=== PATIENT | male | born 1960 | race American Indian/Alaskan Native ===

== ENCOUNTER 2018-07-22 23:34 | Inpatient (IN) | payer MEDICAID, OTHER ==
--- NOTE | 2018-07-22 23:56 | Emergency Department Report ---
ED Shortness of Breath HPI - General Chief Complaint: Psych Stated Complaint: LYNNETTE Time Seen by Provider: 07/22/18 23:39 Source: patient, EMS Mode of arrival: Stretcher Limitations: No Limitations - History of Present Illness Initial Comments: 58-year-old male with history of hypertension, mitral valve replacement, currently taking Coumadin and lisinopril, presents to the ED by EMS for shortness of breath. Patient states symptoms started tonight. Patient states symptoms began just as he was about to go to bed. Denies cough, fever, chest pain, lower extremity swelling. EMS reports patient was in tripod position upon arrival, with O2 sats in the 80s, and hypertensive with SBP in the 240s. Patient was given Solu-Medrol, SL nitro, Lasix and placed on CPAP. Patient states he recently stopped smoking 2 weeks ago. Denies drug use. PCP: none Complaint: shortness of breath -: This evening Severity: severe Consistency: constant Improves With: nothing Worsens With: nothing Treatments Prior to Arrival: NIPPV, nitroglycerin - Related Data Home Oxygen Therapy: No Allergies Allergy/AdvReac Type Severity Reaction Status Date / Time No Known Allergies Allergy Verified 07/22/18 23:44 ED Review of Systems ROS: Stated complaint: LYNNETTE Other details as noted in HPI Comment: All other systems reviewed and negative Constitutional: denies: chills, fever Respiratory: shortness of breath. denies: cough Cardiovascular: denies: chest pain Musculoskeletal: other (denies leg swelling or edema) ED Past Medical Hx - Past Medical History Previous Medical History?: Yes Hx Hypertension: Yes Hx Congestive Heart Failure: Yes Additional medical history: Mitral Valve Replacement - Surgical History Past Surgical History?: Yes Additional Surgical History: "head" - Social History Smoking Status: Never Smoker Substance Use Type: Prescribed ED Physical Exam - General Limitations: No Limitations General appearance: alert, in no apparent distress - Head Head exam: Present: atraumatic, normocephalic - Eye Eye exam: Present: normal appearance - ENT ENT exam: Present: mucous membranes moist - Neck Neck exam: Present: normal inspection - Respiratory Respiratory exam: Present: respiratory distress, rales - Cardiovascular Cardiovascular Exam: Present: regular rate, normal rhythm - GI/Abdominal GI/Abdominal exam: Present: soft. Absent: distended, tenderness - Extremities Exam Extremities exam: Absent: pedal edema, calf tenderness - Neurological Exam Neurological exam: Present: alert, oriented X3 - Psychiatric Psychiatric exam: Present: normal affect, normal mood - Skin Skin exam: Present: warm, dry, intact, normal color ED Course Vital Signs 07/22/18 07/22/18 07/22/18 23:35 23:39 23:40 Temperature 97.1 F L Pulse Rate 70 71 Pulse Rate [ Bilateral Throughout] Respiratory 23 25 H Rate Respiratory Rate [Bilateral Throughout] Blood Pressure 172/118 124/64 172/116 O2 Sat by Pulse 100 100 Oximetry 07/23/18 07/23/18 07/23/18 00:00 00:23 01:00 Temperature Pulse Rate 71 69 84 Pulse Rate [ Bilateral Throughout] Respiratory 22 Rate Respiratory Rate [Bilateral Throughout] Blood Pressure 189/126 163/114 153/106 O2 Sat by Pulse 100 100 Oximetry 07/23/18 07/23/18 01:23 02:00 Temperature Pulse Rate 91 H Pulse Rate [ 68 Bilateral Throughout] Respiratory Rate Respiratory 20 Rate [Bilateral Throughout] Blood Pressure 149/101 O2 Sat by Pulse 96 Oximetry ED Medical Decision Making - Lab Data Result diagrams: 07/23/18 00:21 07/23/18 00:21 - EKG Data -: EKG Interpreted by Pa EKG shows normal: sinus rhythm, axis, ST-T waves Rate: normal - EKG Data Interpretation: LVH, other (RBBB) - Radiology Data Radiology results: report reviewed, image reviewed - Medical Decision Making 58-year-old male presents to ED wrist distress. Patient given multiple medications by EMS prior to arrival, including sublingual nitroglycerin, Lasix, Solu-Medrol. Patient denies known history of CHF or COPD. However patient did have a history of smoking, states that he recently stopped 2 weeks ago. Patient remained hypertensive upon ED arrival despite administration of nitroglycerin, saw hydralazine 10 mg IV was given. Patient was given albuterol nebulizer, reported relief following nebulizer treatment. EKG showed evidence of right bundle-branch block, no ST changes, normal troponin. His EKG and difficulty breathing CTA was ordered. CTA did not show evidence of PE or pulmonary edema. CT shows evidence of emphysematous lungs. This is possibly a COPD exacerbation vs CHF. Patient does have elevated BNP. Will admit to hospitalist, Dr Gutiérrez, for further management. - Differential Diagnosis CHF, COPD, PE, pneumonia Critical Care Time: Yes Critical care time in (mins) excluding proc time.: 30 Critical care attestation.: If time is entered above; I have spent that time in minutes in the direct care of this critically ill patient, excluding procedure time. Critical Care Time: 30 minutes ED Disposition Clinical Impression: Hypertensive emergency, Acute respiratory distress, COPD (chronic obstructive pulmonary disease) Disposition: 09 OP ADMIT IP TO THIS HOSP Is pt being admited?: Yes Condition: Stable Instructions: Chronic Obstructive Pulmonary Disease (ED), Hypertension (ED) Referrals: IVORY HERNANDEZ MD [Primary Care Provider] - 3-5 Days Time of Disposition: 03:16
--- NOTE | 2018-07-23 00:04 | XRay Report ---
PROCEDURE: Chest. TECHNIQUE: Portable AP view. HISTORY: Shortness of breath. COMPARISONS: None. FINDINGS: The heart and mediastinum appear normal. There is mild tortuosity and calcification in the thoracic a silver. There is a prosthetic aortic valve. The lungs are clear and well expanded. There are no pleural effusions. The soft tissues are unremarkable. Median sternotomy wires are present. IMPRESSION: No evidence of acute cardiopulmonary disease. This document is electronically signed by Hernán Stephens MD., July 23 2018 12:01:43 AM ET
[2018-07-23] MEDS ORDERED: ATROVENT IH ONE (00:15)
[2018-07-23] MEDS ORDERED: PROVENTIL IH ONE (00:15)
[2018-07-23] MEDS ORDERED: APRESOLINE IV ONE (00:17)
[2018-07-23 00:42] LABS: Basophils # (Auto) 0.1 K/mm3 (0.0-0.1); Basophils % (Auto) 0.6 % (0.0-1.8); Eosinophils # (Auto) 0.1 K/mm3 (0.0-0.4); Eosinophils % (Auto) 0.9 % (0.0-4.3); Hematocrit 38.8 % (35.5-45.6); Hemoglobin 12.4 gm/dl (11.8-15.2); Lymphocytes # (Auto) 1.1 K/mm3 (1.2-5.4); Lymphocytes % (Auto) 12.9 % (13.4-35.0); Mean Corpuscular HGB Conc 32 % (32-34); Mean Corpuscular Volume 79 fl (84-94); Monocytes # (Auto) 0.3 K/mm3 (0.0-0.8); Monocytes % (Auto) 3.4 % (0.0-7.3); Red Blood Count 4.92 M/mm3 (3.65-5.03); Red Cell Distribution Width 15.9 % (13.2-15.2)
[2018-07-23 00:54] LABS: INR 0.89 (0.87-1.13); Partial Thromboplastin Time 23.6 Sec. (24.2-36.6); Platelet Count 157 K/mm3 (140-440)
[2018-07-23 01:09] LABS: Amphetamine Screen,Urine PRESUMPTIVE NEGATIVE; Benzodiazepines Screen,Urine PRESUMPTIVE NEGATIVE; Bilirubin,Urine NEG (Negative); Blood,Urine NEG (Negative); Cocaine Screen,Urine PRESUMPTIVE NEGATIVE; Color,Urine Colorless (Yellow); Methadone Screen,Urine PRESUMPTIVE NEGATIVE; Opiate Screen,Urine PRESUMPTIVE NEGATIVE; Protein,Urine <15 mg/dL mg/dL (Negative); Urobilinogen,Urine < 2.0 mg/dL (<2.0)
[2018-07-23 01:27] LABS: Cannabinoid Screen,Urine PRESUMPTIVE POSITIVE
[2018-07-23 02:10] LABS: BUN/Creatinine Ratio 7; Blood Urea Nitrogen 8 mg/dL (9-20); Calcium 9.3 mg/dL (8.4-10.2); Hemolysis Index 20
--- NOTE | 2018-07-23 03:11 | Cat Scan Report ---
PROCEDURE: CT ANGIO CHEST TECHNIQUE: A CT angiogram was obtained following the intravenous injection of IV contrast. Rotationa l, sagittal, and coronal MIP reconstructions were reviewed. HISTORY: sob COMPARISONS: Chest x-ray 07/22/2018 FINDINGS: There is no evidence of pulmonary embolus, vascular congestion, or aortic dissection. The heart size is normal. Pericardial fluid is not seen. The thoracic aorta is normal in caliber. Adenopathy is not seen. The lungs are hyperinflated with generalized emphysematous changes. There are no acute infiltra silviano or effusions. In the upper abdomen the adrenal glands appear normal. There are small cortical cys ts in the left kidney. The skeletal structures do not show any acute changes. Sternotomy sutures are noted. IMPRESSION: No evidence of pulmonary embolus, vascular congestion, or aortic dissection. Emphysema. No acute infiltrates or effusions.. This document is electronically signed by aFdi Gaston MD., July 23 2018 03:09:02 AM ET
[2018-07-23] MEDS ORDERED: TYLENOL PO PRN (04:09)
[2018-07-23] MEDS ORDERED: ZOFRAN IV PRN (04:10)
--- NOTE | 2018-07-23 06:08 | History and Physical Report ---
CHIEF COMPLAINT: Shortness of breath. HISTORY OF PRESENTING ILLNESS: The patient is a 58-year-old male who was having shortness of breath at home and denied history of chest pain and denied history of fever or chills. Also, the patient denied history of nausea and vomiting or swelling in the lower extremity and stated that his symptoms started just when he was about to go to bed. EMS was called and they found the patient in respiratory distress with low oxygen saturation in the 80s and with very high systolic blood pressure running about 240s. The patient was subsequently given Solu-Medrol IV, sublingual nitroglycerin and a dose of IV Lasix and was placed on CPAP and brought to the Emergency Room. PAST MEDICAL HISTORY: Pertinent for hypertension, congestive heart failure, mitral valve disease. PAST SURGICAL HISTORY: Pertinent for mitral valve replacement surgery and surgery involving the head. FAMILY HISTORY: Family history is noncontributory. SOCIAL HISTORY: The patient smokes cigarettes and states he stopped smoking about 2 weeks ago. Does not use illicit drugs and does not drink alcohol. MEDICATIONS: The patient's home medications are not known at this time. ALLERGIES: There are no known drug allergies. REVIEW OF SYSTEMS: CONSTITUTIONAL: There is no fever, no chills, no diaphoresis. HEENT: There is no headache or sore throat. CARDIOVASCULAR SYSTEM: There is no chest pain or orthopnea. RESPIRATORY SYSTEM: Shortness of breath is present. Mild cough is present. GASTROINTESTINAL SYSTEM: There is no nausea, no vomiting, no abdominal pain, diarrhea or constipation. NEUROLOGICAL SYSTEM: There is no numbness, no dizziness, no altered mental status. MUSCULOSKELETAL SYSTEM: There is no joint pain or swelling. DERMATOLOGICAL SYSTEM: There is no skin rash or itching. GENITOURINARY SYSTEM: There is no dysuria, hematuria, or flank pain. Rest of system review is normal. PHYSICAL EXAMINATION: GENERAL: At the time of exam, the patient was found to be alert, oriented x 3 and not in acute distress. VITAL SIGNS: At the initial time of presentation show temperature of 97.1 degrees Fahrenheit, pulse of 70, respiration 24, blood pressure of 172/118 that came down to 124/64, O2 sat of 100% on oxygen. HEENT: Showed pupils to be equal, round, reactive to light and accommodating. Extraocular muscles are intact. NECK: Neck is supple with no JVD or carotid bruit. CARDIOVASCULAR SYSTEM: Showed normal first and second heart sounds with no gallops or murmur. RESPIRATORY SYSTEM: Show reduced air entry on both sides of the lung with expiratory wheezing. GASTROINTESTINAL SYSTEM: Show abdomen to be full, soft, nontender with no organomegaly or rigidity. NEUROLOGICAL: Neuro exam shows no focal deficit. MUSCULOSKELETAL SYSTEM: Show no joint swelling or tenderness. DERMATOLOGICAL SYSTEM: Show no skin rash. GENITOURINARY SYSTEM: Showing no costovertebral angle tenderness. PERTINENT LABORATORY AND IMAGING STUDIES: The patient had chest x-ray done which shows no evidence of acute cardiopulmonary lesion. Also, the patient had CT angiogram of the chest done that shows no evidence of pulmonary embolism, vascular congestion or aortic dissection. There is finding of emphysema and no acute infiltrate or effusion was found. Lab result; the patient has CBC done with normal white count, normal hemoglobin and normal hematocrit with CBC differential showing elevated segmented neutrophil count of 82.2%. The patient's coagulation study was unremarkable. The patient's blood gas shows normal pH, normal pCO2 and low pO2 of 68 with low O2 sat of 93% and this was done on room air. The patient's chemistry was unremarkable. Troponin level came back unremarkable. Brain natriuretic peptide level is 898.7 which is within normal range. The patient's urinalysis was unremarkable and the patient's toxicology screen is positive for marijuana. DIAGNOSES: 1. Emphysema. 2. Hypertensive crisis. 3. Marijuana abuse. PLAN OF CARE: 1. The patient will be admitted to telemetry. 2. The patient will have cardiac enzymes involving troponin, total CK, and CK-MB check q. 6 hours x 2 more levels. 3. The patient will be on 2 gram sodium diet. 4. The patient will be on IV Solu-Medrol 60 mg q. 8 hours. 5. The patient will be on IV Levaquin 750 mg daily. 6. The patient will be on duo nebulizer q.i.d. 7. The patient will be on p.r.n. medications like Tylenol 650 mg by mouth every 4 hours as needed for fever and headache. 8. The patient will be on IV Zofran 4 mg every 8 hours as needed for nausea and vomiting. 9. The patient will be on oxygen treatment by protocol. 10. The patient will be on IV hydralazine 10 mg every 4 hours for systolic blood pressure of 150/90 or more. JOB# [id number] OCN/NTS
[2018-07-23 07:32] LABS: Creatine Kinase MB 5.9 ng/mL (0.0-4.0)
--- NOTE | 2018-07-23 09:20 | Progress Note ---
Assessment and Plan Assessment and plan: Patient is a 58 yo man with a history of hypertension, CHF, MVR and tobacco dependency who presented with sob. * CTA chest IMPRESSION: No evidence of pulmonary embolus, vascular congestion, or aortic dissection. Emphysema. No acute infiltrates or effusions.. Malignant Hypertension AE COPD suspected Marijuana use History Interval history: Patient was seen and examined. Follow-up on current diagnosis hypertension. Overnight uneventful. Patient denies any chest pain, shortness breath, nausea/vomiting or severe headaches. Imaging, nursing note, chart, labs and old chart reviewed. Discussed with patient. Hospitalist Physical - Physical exam Narrative exam: Gen: WDWN, NAD, Awake, Alert, Orientated HEENT: NCAT, EOMI, PERRL, OP Clear Neck: supple, no adenopathy, no thyromegaly, no JVD CVS/Heart: RRR, normal S1S2, pulses present bilaterally Chest/Lungs: CTA B, Symmetrical chest expansion, good air entry bilaterally GI/Abdomen: soft, NTND, good bowel sounds, no guarding or rebound /Bladder: no suprapubic tenderness, no CVA or paraspinal tenderness Extermity/Skin: no c/c/e, no obvious rash MSK: FROM x 4 Neuro: CN 2-12 grossly intact, no new focal deficits Psych: calm - Constitutional Vitals: Temp Pulse Resp BP Pulse Ox 97.9 F 71 18 153/95 98 07/23/18 07:44 07/23/18 07:44 07/23/18 07:44 07/23/18 07:44 07/23/18 07:44 Results - Labs CBC & Chem 7: 07/23/18 00:21 07/23/18 00:21 Labs: Laboratory Last Values WBC 8.2 K/mm3 (4.5-11.0) 07/23/18 00:21 RBC 4.92 M/mm3 (3.65-5.03) 07/23/18 00:21 Hgb 12.4 gm/dl (11.8-15.2) 07/23/18 00:21 Hct 38.8 % (35.5-45.6) 07/23/18 00:21 MCV 79 fl (84-94) L 07/23/18 00:21 MCH 25 pg (28-32) L 07/23/18 00:21 MCHC 32 % (32-34) 07/23/18 00:21 RDW 15.9 % (13.2-15.2) H 07/23/18 00:21 Plt Count 157 K/mm3 (140-440) 07/23/18 00:21 Lymph % (Auto) 12.9 % (13.4-35.0) L 07/23/18 00:21 Rowan % (Auto) 3.4 % (0.0-7.3) 07/23/18 00:21 Eos % (Auto) 0.9 % (0.0-4.3) 07/23/18 00:21 Baso % (Auto) 0.6 % (0.0-1.8) 07/23/18 00:21 Lymph # 1.1 K/mm3 (1.2-5.4) L 07/23/18 00:21 Rowan # 0.3 K/mm3 (0.0-0.8) 07/23/18 00:21 Eos # 0.1 K/mm3 (0.0-0.4) 07/23/18 00:21 Baso # 0.1 K/mm3 (0.0-0.1) 07/23/18 00:21 Seg Neutrophils % 82.2 % (40.0-70.0) H 07/23/18 00:21 Seg Neutrophils # 6.7 K/mm3 (1.8-7.7) 07/23/18 00:21 PT 12.6 Sec. (12.2-14.9) 07/23/18 00:21 INR 0.89 (0.87-1.13) 07/23/18 00:21 APTT 23.6 Sec. (24.2-36.6) L 07/23/18 00:21 POC ABG pH 7.383 (7.35-7.45) 07/23/18 03:39 POC ABG pCO2 38.6 (35-45) 07/23/18 03:39 POC ABG pO2 68 (80-105) L 07/23/18 03:39 POC ABG HCO3 23.0 07/23/18 03:39 POC ABG Total CO2 24 07/23/18 03:39 POC ABG O2 Sat 93 07/23/18 03:39 POC ABG Base Excess -2 07/23/18 03:39 FiO2 21 % 07/23/18 03:39 Sodium 145 mmol/L (137-145) 07/23/18 00:21 Potassium 3.9 mmol/L (3.6-5.0) 07/23/18 00:21 Chloride 102.2 mmol/L (98-107) 07/23/18 00:21 Carbon Dioxide 29 mmol/L (22-30) 07/23/18 00:21 Anion Gap 18 mmol/L 07/23/18 00:21 BUN 8 mg/dL (9-20) L 07/23/18 00:21 Creatinine 1.2 mg/dL (0.8-1.5) 07/23/18 00:21 Estimated GFR > 60 ml/min 07/23/18 00:21 BUN/Creatinine Ratio 7 % 07/23/18 00:21 Glucose 111 mg/dL (75-100) H 07/23/18 00:21 Calcium 9.3 mg/dL (8.4-10.2) 07/23/18 00:21 Total Creatine Kinase 201 units/L (55-170) H 07/23/18 06:40 CK-MB (CK-2) 5.9 ng/mL (0.0-4.0) H 07/23/18 06:40 CK-MB (CK-2) Rel Index 2.9 (0-4) 07/23/18 06:40 Troponin T < 0.010 ng/mL (0.00-0.029) 07/23/18 06:40 NT-Pro-B Natriuret Pep 898.7 pg/mL (0-900) 07/23/18 00:21 Urine Color Colorless (Yellow) 07/23/18 00:12 Urine Turbidity Clear (Clear) 07/23/18 00:12 Urine pH 7.0 (5.0-7.0) 07/23/18 00:12 Ur Specific [place] 1.003 (1.003-1.030) 07/23/18 00:12 Urine Protein <15 mg/dl mg/dL (Negative) 07/23/18 00:12 Urine Glucose (UA) Neg mg/dL (Negative) 07/23/18 00:12 Urine Ketones Neg mg/dL (Negative) 07/23/18 00:12 Urine Blood Neg (Negative) 07/23/18 00:12 Urine Nitrite Neg (Negative) 07/23/18 00:12 Urine Bilirubin Neg (Negative) 07/23/18 00:12 Urine Urobilinogen < 2.0 mg/dL (<2.0) 07/23/18 00:12 Ur Leukocyte Esterase Neg (Negative) 07/23/18 00:12 Urine WBC (Auto) 1.0 /HPF (0.0-6.0) 07/23/18 00:12 Urine RBC (Auto) 1.0 /HPF (0.0-6.0) 07/23/18 00:12 U Epithel Cells (Auto) < 1.0 /HPF (0-13.0) 07/23/18 00:12 Urine Opiates Screen Presumptive negative 07/23/18 00:12 Urine Methadone Screen Presumptive negative 07/23/18 00:12 Ur Barbiturates Screen Presumptive negative 07/23/18 00:12 Ur Phencyclidine Scrn Presumptive negative 07/23/18 00:12 Ur Amphetamines Screen Presumptive negative 07/23/18 00:12 U Benzodiazepines Scrn Presumptive negative 07/23/18 00:12 Urine Cocaine Screen Presumptive negative 07/23/18 00:12 U Marijuana (THC) Screen Presumptive positive 07/23/18 00:12 Drugs of Abuse Note Disclamer 07/23/18 00:12
[2018-07-23] MEDS: SOLU-Medrol IV SCH ×3 (09:38→17:00)
[2018-07-23] MEDS: LEVAQUIN 750MG/150ML 750 MG/150 ML BAG IV SCH (09:39)
[2018-07-23] MEDS: DUONEB *Not for PRN Use IH SCH ×4 (09:57→20:58)
[2018-07-23] MEDS ORDERED: HEPARIN SUB-Q SCH (10:00)
[2018-07-23 13:57] LABS: Creatine Kinase MB 6.2 ng/mL (0.0-4.0)
--- NOTE | 2018-07-23 16:09 | Discharge Summary ---
Providers - Providers Date of Admission: 07/23/18 04:06 Date of discharge: 07/23/18 Attending physician: RUDY KO Primary care physician: SILL WORKER Hospitalization Condition: Stable Hospital course: Patient is a 58 yo man with a history of hypertension, CHF, mechanical MVR on Coumadin and tobacco dependency who presented with sob. * CTA chest IMPRESSION: No evidence of pulmonary embolus, vascular congestion, or aortic dissection. Emphysema. No acute infiltrates or effusions.. -Malignant Hypertension,out of bp medication, here for refills, lost insurance -Mechanical Mitral Valve, out of Coumadin 7.5mg po qday - and 5mg/day SS, needs bridging but he is threatening to leave -AE COPD suspected, referral Pulmonology -Marijuana use: counseling done Disposition: DC- TO HOME OR SELFCARE Time spent for discharge: 32 minutes Core Measure Documentation - Palliative Care Palliative Care/ Comfort Measures: Not Applicable - Core Measures Any of the following diagnoses?: none - VTE Discharge Requirements Deep Vein Thrombosis/Pulmonary Embolism Present on Admission: No Has pt received <5 days of overlap therapy or INR<2.0: No Anticoagulant overlap therapy prescribed at discharge: No Contraindication No Overlap Therapy order at DC: Not Indicated Exam - Physical Exam Narrative exam: Gen: WDWN, NAD, Awake, Alert, Orientated HEENT: NCAT, EOMI, PERRL, OP Clear Neck: supple, no adenopathy, no thyromegaly, no JVD CVS/Heart: RRR, normal S1S2, pulses present bilaterally Chest/Lungs: CTA B, Symmetrical chest expansion, good air entry bilaterally GI/Abdomen: soft, NTND, good bowel sounds, no guarding or rebound /Bladder: no suprapubic tenderness, no CVA or paraspinal tenderness Extermity/Skin: no c/c/e, no obvious rash MSK: FROM x 4 Neuro: CN 2-12 grossly intact, no new focal deficits Psych: calm - Constitutional Vitals: Temp Pulse Resp BP Pulse Ox 97.9 F 78 16 153/95 98 07/23/18 07:44 07/23/18 10:05 07/23/18 10:05 07/23/18 07:44 07/23/18 07:44 Plan Activity: other (no strenous activity unless cleared by PCP) Special Instructions: smoking cessation (declined nicotine patch) Follow up with: IVORY HERNANDEZ MD [Staff Physician] - 3-5 Days [facility] [Provider Group] - 7 Days
[2018-07-23] MEDS: BABY ASPIRIN PO SCH (16:56)
[2018-07-23] MEDS: COUMADIN PO SCH (16:56)
[2018-07-23] MEDS: ZESTRIL PO SCH (16:56)
[2018-07-23] MEDS: HEPARIN/ 0.45% NACL-25,000 UNIT/500 ML 25,000 UNIT/500 ML BAG IV SCH (17:00)
[2018-07-23 17:20] LABS: Hematocrit 36.5 % (35.5-45.6); Hemoglobin 11.7 gm/dl (11.8-15.2)
[2018-07-23 17:32] LABS: INR 0.95 (0.87-1.13)
[2018-07-23] MEDS: APRESOLINE IV PRN (21:27)
[2018-07-24] MEDS: APRESOLINE IV PRN (04:10)
[2018-07-24] MEDS: SOLU-Medrol IV SCH ×2 (06:00→17:59)
[2018-07-24] MEDS: DUONEB *Not for PRN Use IH SCH ×4 (08:07→20:19)
[2018-07-24 08:40] LABS: INR 1.02 (0.87-1.13)
--- NOTE | 2018-07-24 10:43 | Consultation ---
History of Present Illness Consult date: 07/24/18 Consult reason: other (mechanical MVR) History of present illness: Patient is a 58 year old male with a history of mechanical mitral valve replac embear implanted in 2010 at [facility]. 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 There is no history of coronary artery disease. Patient was admitted 3/4 with shortness of breath. Chest x-ray is negative and a chest CT scan reports no evidence of pulmonary embolus. Initial labs shows a sub therapeutic INR of 0.9. Patient reports he was not taking warfarin as directed because he lost his insurance. Today, patient is resting in bed and appears comfortable. He denies chest pain and reports his breathing is better. An ECG is sinus rhythm, LVH with an underlying RBBB. Medications and Allergies Allergies Allergy/AdvReac Type Severity Reaction Status Date / Time No Known Allergies Allergy Verified 07/22/18 23:44 Home Medications Medication Instructions Recorded Confirmed Last Taken Type Lisinopril [Zestril] 10 mg PO DAILY 07/23/18 07/23/18 Unknown History Warfarin [Coumadin] 5 mg PO DAILY 07/23/18 07/23/18 Unknown History Warfarin [Coumadin] 7.5 mg PO DAILY 07/23/18 07/23/18 Unknown History Active Meds: Active Medications Acetaminophen (Tylenol) 650 mg PO Q4H PRN PRN Reason: Fever >101 Last Admin: 07/23/18 12:57 Dose: 650 mg Documented by: Albuterol/Ipratropium (Duoneb *Not For Prn Use*) 1 ampul IH QIDRT [facility] Last Admin: 07/24/18 08:07 Dose: Not Given Documented by: Aspirin (Baby Aspirin) 81 mg PO QDAY [facility] Last Admin: 07/23/18 16:56 Dose: 81 mg Documented by: Hydralazine HCl (Apresoline) 10 mg IV Q4H PRN PRN Reason: Blood Pressure Last Admin: 07/24/18 04:10 Dose: 10 mg Documented by: Levofloxacin/Dextrose (Levaquin 750mg/150ml) 750 mg in 150 mls @ 100 mls/hr IV Q24HR [facility]; Protocol Last Admin: 07/23/18 09:39 Dose: 100 mls/hr Documented by: Heparin Sodium/Sodium Chloride (Heparin/ 0.45% Nacl-25,000 Unit/500 Ml) 25,000 unit in 500 mls @ 14 mls/hr IV TITR [facility]; Protocol Last Titration: 07/23/18 22:38 Dose: 750 units/hr, 15 mls/hr Documented by: Lisinopril (Zestril) 10 mg PO DAILY [facility] Last Admin: 07/23/18 16:56 Dose: 10 mg Documented by: Methylprednisolone Sodium Succinate (Solu-Medrol) 40 mg IV Q12H [facility] Last Admin: 07/24/18 06:00 Dose: 40 mg Documented by: Ondansetron HCl (Zofran) 4 mg IV Q8H PRN PRN Reason: Nausea And Vomiting Pneumococcal Polyvalent Vaccine (Pneumovax 23) 0.5 ml IM .ONCE ONE Stop: 07/24/18 12:01 Warfarin Sodium (Coumadin) 10 mg PO DAILY@1700 [facility]; Protocol Last Admin: 07/23/18 16:56 Dose: 10 mg Documented by: Physical Examination Vital Signs BP 172/118 07/22/18 23:35 General appearance: no acute distress HEENT: Positive: PERRL Neck: Positive: trachea midline Cardiac: Positive: Reg Rate and Rhythm Lungs: Positive: Decreased Breath Sounds Neuro: Positive: Grossly Intact Results 07/23/18 16:46 07/23/18 00:21 Cardiac Enzymes 07/23/18 Range/Units 12:51 CK-MB (CK-2) 6.2 H (0.0-4.0) ng/mL Coagulation 07/23/18 07/24/18 Range/Units 16:46 07:20 PT 13.3 14.0 (12.2-14.9) Sec. INR 0.95 1.02 (0.87-1.13) APTT 20.0 L (24.2-36.6) Sec. CBC 07/23/18 Range/Units 16:46 Hgb 11.7 L (11.8-15.2) gm/dl Hct 36.5 (35.5-45.6) % Plt Count 132 L (140-440) K/mm3 Assessment and Plan Shortness of breath Mechanical MVR on warfarin with IV heparin for bridge therapy; sub therapeutic INR of 0.[address] followed by Dr Declan Pacheco Hypertension
[2018-07-24] MEDS: BABY ASPIRIN PO SCH (11:57)
[2018-07-24] MEDS: ZESTRIL PO SCH (11:57)
[2018-07-24] MEDS: LEVAQUIN 750MG/150ML 750 MG/150 ML BAG IV SCH (11:57)
[2018-07-24] MEDS ORDERED: AFLURIA QUAD 2018-2019 SYRINGE IM ONE (12:00)
[2018-07-24] MEDS ORDERED: PNEUMOVAX 23 IM ONE (12:00)
--- NOTE | 2018-07-24 15:52 | Progress Note ---
Assessment and Plan Assessment and plan: Patient is a 58 yo man with a history of hypertension, CHF, mechanical MVR on Coumadin and tobacco dependency who presented with sob. * CTA chest IMPRESSION: No evidence of pulmonary embolus, vascular congestion, or aortic dissection. Emphysema. No acute infiltrates or effusions.. -Malignant Hypertension, out of bp medication, here for refills, lost insurance: restarted home medications -Mechanical Mitral Valve, out of Coumadin 7.5mg po qday - and 5mg/day SS: bridging with iv heparin -AE COPD suspected mild, iv steroids, nebs and evaquin -Marijuana use: counseling done Disposition: continue inpatient care, awaiting INR to became therapeutic 2.5- 3.5, and asa 81mg History Interval history: Patient was seen and examined. Follow-up on current diagnosis hypertension. Overnight uneventful. Patient denies any chest pain, shortness breath, nausea/vomiting or severe headaches. Imaging, nursing note, chart, labs and old chart reviewed. Discussed with patient. Hospitalist Physical - Physical exam Narrative exam: Gen: WDWN, NAD, Awake, Alert, Orientated HEENT: NCAT, EOMI, PERRL, OP Clear Neck: supple, no adenopathy, no thyromegaly, no JVD CVS/Heart: RRR, normal S1S2, pulses present bilaterally Chest/Lungs: CTA B, Symmetrical chest expansion, good air entry bilaterally GI/Abdomen: soft, NTND, good bowel sounds, no guarding or rebound /Bladder: no suprapubic tenderness, no CVA or paraspinal tenderness Extermity/Skin: no c/c/e, no obvious rash MSK: FROM x 4 Neuro: CN 2-12 grossly intact, no new focal deficits Psych: calm - Constitutional Vitals: Temp Pulse Resp BP Pulse Ox 98.2 F 88 16 152/101 96 07/24/18 11:57 07/24/18 15:15 07/24/18 15:15 07/24/18 11:57 07/24/18 07:57 General appearance: Present: no acute distress Results - Labs CBC & Chem 7: 07/23/18 16:46 07/23/18 00:21 Labs: Laboratory Last Values WBC 8.2 K/mm3 (4.5-11.0) 07/23/18 00:21 RBC 4.92 M/mm3 (3.65-5.03) 07/23/18 00:21 Hgb 11.7 gm/dl (11.8-15.2) L 07/23/18 16:46 Hct 36.5 % (35.5-45.6) 07/23/18 16:46 MCV 79 fl (84-94) L 07/23/18 00:21 MCH 25 pg (28-32) L 07/23/18 00:21 MCHC 32 % (32-34) 07/23/18 00:21 RDW 15.9 % (13.2-15.2) H 07/23/18 00:21 Plt Count 132 K/mm3 (140-440) L 07/23/18 16:46 Lymph % (Auto) 12.9 % (13.4-35.0) L 07/23/18 00:21 [place] % (Auto) 3.4 % (0.0-7.3) 07/23/18 00:21 Eos % (Auto) 0.9 % (0.0-4.3) 07/23/18 00:21 Baso % (Auto) 0.6 % (0.0-1.8) 07/23/18 00:21 Lymph # 1.1 K/mm3 (1.2-5.4) L 07/23/18 00:21 [place] # 0.3 K/mm3 (0.0-0.8) 07/23/18 00:21 Eos # 0.1 K/mm3 (0.0-0.4) 07/23/18 00:21 Baso # 0.1 K/mm3 (0.0-0.1) 07/23/18 00:21 Seg Neutrophils % 82.2 % (40.0-70.0) H 07/23/18 00:21 Seg Neutrophils # 6.7 K/mm3 (1.8-7.7) 07/23/18 00:21 PT 14.0 Sec. (12.2-14.9) 07/24/18 07:20 INR 1.02 (0.87-1.13) 07/24/18 07:20 APTT 20.0 Sec. (24.2-36.6) L 07/23/18 16:46 Heparin Anti-Xa Level 0.12 U.I./ml (0.3-0.7) L 07/24/18 07:20 POC ABG pH 7.383 (7.35-7.45) 07/23/18 03:39 POC ABG pCO2 38.6 (35-45) 07/23/18 03:39 POC ABG pO2 68 (80-105) L 07/23/18 03:39 POC ABG HCO3 23.0 07/23/18 03:39 POC ABG Total CO2 24 07/23/18 03:39 POC ABG O2 Sat 93 07/23/18 03:39 POC ABG Base Excess -2 07/23/18 03:39 FiO2 21 % 07/23/18 03:39 Sodium 145 mmol/L (137-145) 07/23/18 00:21 Potassium 3.9 mmol/L (3.6-5.0) 07/23/18 00:21 Chloride 102.2 mmol/L (98-107) 07/23/18 00:21 Carbon Dioxide 29 mmol/L (22-30) 07/23/18 00:21 Anion Gap 18 mmol/L 07/23/18 00:21 BUN 8 mg/dL (9-20) L 07/23/18 00:21 Creatinine 1.2 mg/dL (0.8-1.5) 07/23/18 00:21 Estimated GFR > 60 ml/min 07/23/18 00:21 BUN/Creatinine Ratio 7 % 07/23/18 00:21 Glucose 111 mg/dL (75-100) H 07/23/18 00:21 Calcium 9.3 mg/dL (8.4-10.2) 07/23/18 00:21 Total Creatine Kinase 236 units/L (55-170) H 07/23/18 12:51 CK-MB (CK-2) 6.2 ng/mL (0.0-4.0) H 07/23/18 12:51 CK-MB (CK-2) Rel Index 2.6 (0-4) 07/23/18 12:51 Troponin T 0.010 ng/mL (0.00-0.029) 07/23/18 12:51 NT-Pro-B Natriuret Pep 898.7 pg/mL (0-900) 07/23/18 00:21 Urine Color Colorless (Yellow) 07/23/18 00:12 Urine Turbidity Clear (Clear) 07/23/18 00:12 Urine pH 7.0 (5.0-7.0) 07/23/18 00:12 Ur Specific [place] 1.003 (1.003-1.030) 07/23/18 00:12 Urine Protein <15 mg/dl mg/dL (Negative) 07/23/18 00:12 Urine Glucose (UA) Neg mg/dL (Negative) 07/23/18 00:12 Urine Ketones Neg mg/dL (Negative) 07/23/18 00:12 Urine Blood Neg (Negative) 07/23/18 00:12 Urine Nitrite Neg (Negative) 07/23/18 00:12 Urine Bilirubin Neg (Negative) 07/23/18 00:12 Urine Urobilinogen < 2.0 mg/dL (<2.0) 07/23/18 00:12 Ur Leukocyte Esterase Neg (Negative) 07/23/18 00:12 Urine WBC (Auto) 1.0 /HPF (0.0-6.0) 07/23/18 00:12 Urine RBC (Auto) 1.0 /HPF (0.0-6.0) 07/23/18 00:12 U Epithel Cells (Auto) < 1.0 /HPF (0-13.0) 07/23/18 00:12 Urine Opiates Screen Presumptive negative 07/23/18 00:12 Urine Methadone Screen Presumptive negative 07/23/18 00:12 Ur Barbiturates Screen Presumptive negative 07/23/18 00:12 Ur Phencyclidine Scrn Presumptive negative 07/23/18 00:12 Ur Amphetamines Screen Presumptive negative 07/23/18 00:12 U Benzodiazepines Scrn Presumptive negative 07/23/18 00:12 Urine Cocaine Screen Presumptive negative 07/23/18 00:12 U Marijuana (THC) Screen Presumptive positive 07/23/18 00:12 Drugs of Abuse Note Disclamer 07/23/18 00:12 Nutrition/Malnutrition Assess - Dietary Evaluation Nutrition/Malnutrition Findings: Nutrition Notes Start: 07/24/18 13:38 Freq: Status: Active Protocol: Document 07/24/18 13:38 RM (Rec: 07/24/18 14:06 RM [email or web address]) Nutrition Notes Need for Assessment generated from: Low BMI Initial or Follow up Assessment Current Diagnosis Hypertension,Heart Failure Other Pertinent Diagnosis Marijuana abuse Current Diet Low sodium Labs/Tests Reviewed Pertinent Medications Reviewed Height 5 ft 5 in Weight 49.895 kg Usual Body Weight 59.09 kg [place] Body Weight (kg) 61.81 BMI 18.3 Weight change and time frame 15.6% wt loss X 1 year Subjective/Other Information Screened for low BMI and DNI. Pt stated that [employer] he ate 2 meals daily. Stated he eats half of his meals here. Noted preferences. Declined regular Ensure d/t it making him sick in the past. Admitted to missing teeth but denied difficulty chewing facility meals. Stated UBW was 130 lbs 1 year. No physical signs of malnutrition. Pt already familiar with Coumadin/Vit K diet education. Percent of energy/protein needs met: 50%/69% Burn Absent Trauma Absent #1 Nutrition Diagnosis Malnutrition Etiology decreased appetite As Evidenced by Signs and Symptoms pt statement that [employer] he ate 2 meals daily, pt BMI of 18.3 Is patient on ventilator? No Is Patient Ambulatory and/or Out of Bed Yes REE-([facility]-ambulatory/OOB) [ 1613.079 [id number]] Kcal/Kg value to use for calculation 42 Approximate Energy Requirements Using 6 kcal/Kg Calculation Used for Recommendations Kcal/kg Additional Notes Protein Needs: 60-75g (1.2-1. 5g/kg) Fluid Needs: 1 ml/kcal Nutrition Intervention Change Diet Order: Continue current Add Supplement/Snack (indicate name/kcal Ensure Clear 1 daily /protein ) Provides kCal: 240 Provides Protein (gm) 8 Goal #1 Meet at least 75% of calorie and protein needs via PO and ONS intakes Goal #2 Wt gain/maintenance Anticipated Discharge Needs: Low sodium diet Follow-Up By: 07/26/18 Additional Comments Follow for PO and ONS intakes
[2018-07-24] MEDS ORDERED: CARDIZEM IV ONE (17:19)
[2018-07-24] MEDS: COUMADIN PO SCH (17:58)
[2018-07-24] MEDS: LOPRESSOR PO SCH (21:01)
[2018-07-25] MEDS: LOPRESSOR PO SCH ×4 (01:15→21:44)
[2018-07-25] MEDS: HEPARIN/ 0.45% NACL-25,000 UNIT/500 ML 25,000 UNIT/500 ML BAG IV SCH (01:17)
[2018-07-25] MEDS: SOLU-Medrol IV SCH ×2 (05:45→17:43)
[2018-07-25 06:01] LABS: Hematocrit 37.8 % (35.5-45.6); Hemoglobin 12.1 gm/dl (11.8-15.2)
[2018-07-25 06:05] LABS: INR 1.56 (0.87-1.13)
[2018-07-25] MEDS: DUONEB *Not for PRN Use IH SCH (09:06)
--- NOTE | 2018-07-25 09:19 | Progress Note ---
Assessment and Plan Shortness of breath Mechanical MVR on warfarin with IV heparin for bridge therapy; sub therapeutic INR of 0.[address] followed by Dr Declan Pacheco Normal MV function by echo, MG 5 mm Hg Hypertension pSVT seen on telemetry initiated on metoprolol Recommend: Check electrolytes, mag and TSH. Continue warfarin with IV heparin for bridge until target INR 2.5 -3.5 is reached. Continue beta blockers for suppression of paroxysmal SVT. Subjective Date of service: 07/25/18 Interval history: Patient is resting in bed comfortably. He has no complaints. Reports of SVT overnight, patient remained asymptomatic. Stable sinus rhythm on telemetry. INR 1.56. Objective Vital Signs Temp Pulse Pulse Pulse Resp Resp Resp 07/25/18 09:13 56 L 16 07/25/18 09:09 07/25/18 09:06 61 20 07/25/18 08:00 52 L 07/25/18 05:46 63 07/25/18 04:03 98.7 F 59 L 12 07/25/18 04:00 66 07/24/18 23:12 98.3 F 66 12 07/24/18 20:26 84 16 07/24/18 20:16 80 18 07/24/18 19:38 98.4 F 80 14 07/24/18 16:10 98.2 F 84 18 07/24/18 15:15 88 84 16 16 07/24/18 14:44 94 H 07/24/18 11:57 98.2 F 18 07/24/18 11:30 88 84 16 16 BP Pulse Ox 07/25/18 09:13 07/25/18 09:09 97 07/25/18 09:06 07/25/18 08:00 131/86 94 07/25/18 05:46 07/25/18 04:03 147/90 95 07/25/18 04:00 07/24/18 23:12 148/99 95 07/24/18 20:26 07/24/18 20:16 07/24/18 19:38 153/101 94 07/24/18 16:10 147/92 94 07/24/18 15:15 07/24/18 14:44 07/24/18 11:57 152/101 07/24/18 11:30 - Physical Examination General: No Apparent Distress HEENT: Positive: PERRL Neck: Positive: trachea midline Cardiac: Positive: Reg Rate and Rhythm Lungs: Positive: Decreased Breath Sounds Neuro: Positive: Grossly Intact - Labs and Meds Coagulation 07/25/18 Range/Units 04:54 PT 19.7 H (12.2-14.9) Sec. INR 1.56 H (0.87-1.13) CBC 07/25/18 Range/Units 04:50 Hgb 12.1 (11.8-15.2) gm/dl Hct 37.8 (35.5-45.6) % Plt Count 140 (140-440) K/mm3
[2018-07-25] MEDS: BABY ASPIRIN PO SCH (10:01)
[2018-07-25] MEDS: ZESTRIL PO SCH (10:01)
[2018-07-25] MEDS: LEVAQUIN 750MG/150ML 750 MG/150 ML BAG IV SCH (10:02)
[2018-07-25 10:32] LABS: BUN/Creatinine Ratio 24; Blood Urea Nitrogen 29 mg/dL (9-20); Calcium 8.6 mg/dL (8.4-10.2); Hemolysis Index 4
[2018-07-25] MEDS ORDERED: PROVENTIL IH PRN (12:00)
[2018-07-25] MEDS ORDERED: LOPRESSOR PO SCH (13:00)
[2018-07-25 15:58] LABS: Amphetamine Screen,Urine PRESUMPTIVE NEGATIVE; Benzodiazepines Screen,Urine PRESUMPTIVE NEGATIVE; Cocaine Screen,Urine PRESUMPTIVE NEGATIVE; Methadone Screen,Urine PRESUMPTIVE NEGATIVE; Opiate Screen,Urine PRESUMPTIVE NEGATIVE
[2018-07-25 16:16] LABS: Cannabinoid Screen,Urine PRESUMPTIVE POSITIVE
[2018-07-25] MEDS: COUMADIN PO SCH (17:42)
--- NOTE | 2018-07-25 17:56 | Progress Note ---
Assessment and Plan Assessment and Plan Assessment and plan: Patient is a 58 yo man with a history of hypertension, CHF, mechanical MVR on Coumadin and tobacco dependency who presented with sob. * CTA chest IMPRESSION: No evidence of pulmonary embolus, vascular congestion, or aortic dissection. Emphysema. No acute infiltrates or effusions.. -Malignant Hypertension, out of bp medication, here for refills, lost insurance: restarted home medications -Mechanical Mitral Valve, out of Coumadin 7.5mg po qday m-f and 5mg/day SS: bridging with iv heparin -AE COPD suspected mild, iv steroids, nebs and evaquin -Marijuana use: counseling done Disposition: continue inpatient care, awaiting INR to became therapeutic 2.5- 3.5, and asa 81mg Subjective Date of service: 07/25/18 Objective - Constitutional Vitals: Vital Signs - 12hr 07/25/18 07/25/18 07/25/18 08:00 09:06 09:09 Pulse Rate 52 L Pulse Rate [ Apical] Pulse Rate [ 61 Bilateral Throughout] Pulse Rate [ Left Dorsalis Pedis] Pulse Rate [ Left Radial] Pulse Rate [ Right Dorsalis Pedis] Pulse Rate [ Right Radial] Respiratory Rate Respiratory 20 Rate [Bilateral Throughout] Blood Pressure 131/86 O2 Sat by Pulse 94 97 Oximetry 07/25/18 07/25/18 07/25/18 09:13 10:00 10:01 Pulse Rate 58 L 94 H Pulse Rate [ 62 Apical] Pulse Rate [ 56 L Bilateral Throughout] Pulse Rate [ 62 Left Dorsalis Pedis] Pulse Rate [ 62 Left Radial] Pulse Rate [ 62 Right Dorsalis Pedis] Pulse Rate [ 62 Right Radial] Respiratory 19 Rate Respiratory 16 Rate [Bilateral Throughout] Blood Pressure 131/86 O2 Sat by Pulse 99 Oximetry 07/25/18 07/25/18 07/25/18 11:58 12:01 12:25 Pulse Rate 55 L 60 61 Pulse Rate [ Apical] Pulse Rate [ Bilateral Throughout] Pulse Rate [ Left Dorsalis Pedis] Pulse Rate [ Left Radial] Pulse Rate [ Right Dorsalis Pedis] Pulse Rate [ Right Radial] Respiratory Rate Respiratory Rate [Bilateral Throughout] Blood Pressure 144/92 142/92 137/83 O2 Sat by Pulse 97 95 Oximetry 07/25/18 17:11 Pulse Rate 69 Pulse Rate [ Apical] Pulse Rate [ Bilateral Throughout] Pulse Rate [ Left Dorsalis Pedis] Pulse Rate [ Left Radial] Pulse Rate [ Right Dorsalis Pedis] Pulse Rate [ Right Radial] Respiratory Rate Respiratory Rate [Bilateral Throughout] Blood Pressure 151/94 O2 Sat by Pulse 93 Oximetry General appearance: Present: no acute distress, well-nourished - EENT Eyes: PERRL, EOM intact ENT: hearing intact, clear oral mucosa Ears: bilateral: normal - Neck Neck: supple, normal ROM - Respiratory Respiratory effort: normal Respiratory: bilateral: CTA - Breasts Breasts: normal - Cardiovascular Rhythm: regular Heart Sounds: Present: S1 & S2. Absent: gallop, rub Extremities: pulses intact, No edema, normal color, Full ROM - Gastrointestinal General gastrointestinal: Present: soft, non-tender, non-distended, normal bowel sounds - Genitourinary Male genitourinary: normal - Integumentary Integumentary: clear, warm, dry - Musculoskeletal Musculoskeletal: 1, strength equal bilaterally - Neurologic Neurologic: moves all extremities - Psychiatric Psychiatric: memory intact, appropriate mood/affect, intact judgment & insight - Labs CBC & Chem 7: 07/25/18 04:50 07/25/18 09:41 Labs: Abnormal lab results 07/25/18 07/25/18 Range/Units 04:54 09:41 PT 19.7 H (12.2-14.9) Sec. INR 1.56 H (0.87-1.13) Sodium 135 L D (137-145) mmol/L BUN 29 H (9-20) mg/dL
[2018-07-25] MEDS: APRESOLINE IV PRN (18:15)
[2018-07-25] MEDS: PULMICORT IH SCH (20:44)
[2018-07-25] MEDS: BROVANA NEBU IH SCH (20:44)
[2018-07-26] MEDS: HEPARIN/ 0.45% NACL-25,000 UNIT/500 ML 25,000 UNIT/500 ML BAG IV SCH (05:12)
[2018-07-26] MEDS: SOLU-Medrol IV SCH ×2 (05:12→17:56)
[2018-07-26 05:46] LABS: INR 2.34 (0.87-1.13)
[2018-07-26 05:59] LABS: BUN/Creatinine Ratio 23; Blood Urea Nitrogen 28 mg/dL (9-20); Calcium 8.6 mg/dL (8.4-10.2); Hemolysis Index 10
[2018-07-26] MEDS: BROVANA NEBU IH SCH (08:36)
[2018-07-26] MEDS: PULMICORT IH SCH (08:36)
[2018-07-26] MEDS ORDERED: LEVAQUIN PO SCH (09:00)
--- NOTE | 2018-07-26 10:18 | Progress Note ---
Assessment and Plan Shortness of breath Mechanical MVR on warfarin with IV heparin for bridge therapy; sub therapeutic INR of 0.[address] presentation[address] followed by Dr Declan Pacheco Normal MV function by echo, MG 5 mm Hg Hypertension pSVT seen on telemetry initiated on metoprolol Recommend: Continue warfarin for mechanical MVR. Continue beta blockers for suppression of paroxysmal SVT. Stable for discharge home today. Patient advised to f/u with his primary money room teller, Dr Declan Pacheco, in 3 days. Subjective Date of service: 07/26/18 Interval history: Patient is resting in bed comfortably. He has no complaints. No events on telemetry. INR today at 2.34. Objective Vital Signs Temp Pulse Pulse Resp Resp BP Pulse Ox 07/26/18 10:07 98.3 F 70 18 129/78 92 07/26/18 08:00 97.8 F 07/26/18 04:22 122.0 F H 54 L 14 153/93 95 07/25/18 23:10 98.3 F 62 12 121/94 97 07/25/18 20:48 62 20 07/25/18 20:40 60 20 07/25/18 19:42 69 07/25/18 19:16 97.1 F L 61 12 133/83 92 07/25/18 18:25 59 L 129/74 95 07/25/18 18:15 69 151/94 07/25/18 17:11 69 151/94 93 07/25/18 12:25 61 137/83 95 07/25/18 12:01 60 142/92 07/25/18 11:58 55 L 144/92 97 - Physical Examination General: No Apparent Distress HEENT: Positive: PERRL Neck: Positive: trachea midline Cardiac: Positive: Reg Rate and Rhythm Lungs: Positive: Decreased Breath Sounds Neuro: Positive: Grossly Intact - Labs and Meds Coagulation 07/26/18 Range/Units 04:31 PT 27.2 H (12.2-14.9) Sec. INR 2.34 H (0.87-1.13) Comprehensive Metabolic Panel 07/25/18 07/26/18 Range/Units 09:41 04:31 Sodium 135 L D 136 L (137-145) mmol/L Potassium 4.8 D 4.5 (3.6-5.0) mmol/L Chloride 99.4 101.7 (98-107) mmol/L Carbon Dioxide 25 22 (22-30) mmol/L BUN 29 H 28 H (9-20) mg/dL Creatinine 1.2 1.2 (0.8-1.5) mg/dL Glucose 97 86 (75-100) mg/dL Calcium 8.6 8.6 (8.4-10.2) mg/dL
[2018-07-26] MEDS: ZESTRIL PO SCH (10:48)
[2018-07-26] MEDS: LOPRESSOR PO SCH (10:48)
[2018-07-26] MEDS: BABY ASPIRIN PO SCH (10:48)
[2018-07-26 17:04] VITALS: BP 136/89
--- NOTE | 2018-07-26 17:22 | Discharge Summary ---
Providers - Providers Date of Admission: 07/23/18 04:06 Date of discharge: 07/26/18 Attending physician: WILDA ROJAS Primary care physician: CASE COORDINATOR Hospitalization Condition: Stable Hospital course: Assessment and Plan Patient is a 58 yo man with a history of hypertension, CHF, mechanical MVR on Coumadin and tobacco dependency who presented with sob. * CTA chest IMPRESSION: No evidence of pulmonary embolus, vascular congestion, or aortic dissection. Emphysema. No acute infiltrates or effusions.. -Malignant Hypertension, out of bp medication, here for refills, lost insurance: restarted home medications--Controlled -Mechanical Mitral Valve, out of Coumadin 7.5mg po qday m-f and 5mg/day SS: bridging with iv heparin -AE COPD suspected mild, iv steroids, nebs and evaquin -Marijuana use: counseling done Disposition:INR therapeutic 2.5-3.5, and asa 81mg Disposition: DC-01 TO HOME OR SELFCARE Core Measure Documentation - Palliative Care Palliative Care/ Comfort Measures: Not Applicable - Core Measures Any of the following diagnoses?: none Exam - Constitutional Vitals: Temp Pulse Resp BP Pulse Ox 97.3 F L 54 L 18 136/89 100 07/26/18 17:03 07/26/18 17:03 07/26/18 17:03 07/26/18 17:03 07/26/18 17:03 General appearance: Present: no acute distress, well-nourished - EENT Eyes: Present: PERRL ENT: hearing intact, clear oral mucosa - Neck Neck: Present: supple, normal ROM - Respiratory Respiratory effort: normal Respiratory: bilateral: CTA - Cardiovascular Heart rate: 78 Rhythm: regular Heart Sounds: Present: S1 & S2. Absent: rub, click - Extremities Extremities: pulses symmetrical, No edema Peripheral Pulses: within normal limits - Abdominal General gastrointestinal: Present: soft, non-tender, non-distended, normal bowel sounds Male genitourinary: Present: normal - Integumentary Integumentary: Present: clear, warm, dry - Musculoskeletal Musculoskeletal: gait normal, strength equal bilaterally - Psychiatric Psychiatric: appropriate mood/affect, intact judgment & insight - Neurologic Neurologic: CNII-XII intact, moves all extremities - Allied Health Allied health notes reviewed: nursing, case management Plan Activity: no restrictions Diet: low fat, low cholesterol, low salt Follow up with: [facility] [Provider Group] - 7 Days IVORY HERNANDEZ MD [Staff Physician] - 3-5 Days Forms: Warfarin Discharge Instruction
[2018-07-26] MEDS: COUMADIN PO SCH (17:28)
== END 2018-07-26 18:57 | disposition home or self-care (01) | DRG 191 ==
LOC: ED 23:34 → 4A 07-23 04:06
PROVIDERS: ADMIT Internal Medicine; ATTEND Internal Medicine
PROC: 4A033R1 Measurement of Arterial Saturation, Peripheral, Percutaneous Approach (ICD-10-PCS; principal; 2018-07-23)
DX: J44.1 Chronic obstructive pulmonary disease with (acute) exacerbation (principal); I16.1 Hypertensive emergency; I47.1 Supraventricular tachycardia; I11.0 Hypertensive heart disease with heart failure; I50.9 Heart failure, unspecified; F17.210 Nicotine dependence, cigarettes, uncomplicated; R06.03 Acute respiratory distress; F12.10 Cannabis abuse, uncomplicated; Z91.19 Patient's noncompliance with other medical treatment and regimen; Z95.4 Presence of other heart-valve replacement; Z79.01 Long term (current) use of anticoagulants; Z79.899 Other long term (current) drug therapy; Z71.41 Alcohol abuse counseling and surveillance of alcoholic
CPT/HCPCS: 36415; 71045; 71275; 80048; 80307; 81001; 82550; 82553; 82803; 83735; 83880; 84439; 84443; 84484; 85014; 85018; 85025; 85049; 85520; 85610; 85730; 90686; 90732; 93005; 93010; 93306; 94640; 94644; G0378; J0360; J1644; J1956; J2920; J2930; Q9967

== ENCOUNTER 2018-09-03 13:30 | Emergency (ER) | payer OTHER ==
--- NOTE | 2018-09-03 13:39 | Emergency Department Report ---
Chief Complaint: Medical Clearance Stated Complaint: REFILL MEDS Time Seen by Provider: 09/03/18 13:36 - HPI History of Present Illness: JUST DC 07/26 P PRESENTING TO ER OFF MEDS WITH A SUBTHERAP. INR WITH A MECHANICAL VALVE [facility] BLEED ON COUMADIN DR BOYCE IS HIS CARD. HE COMES AGAIN TODAY FOR MED REFILL STATES NO ONE WILL SEE HIM. HER 45 IN TRIAGE (HAD BEEN 50'S DURING LAST ADMIT) TIRED AND [place] DENIES CP OR SOB IS ON METOP- MAY NEED DEC DOSE INR PENDING TO ED FOR EVAL WILL NEED RESOURCES FOR FOLLOW UP MSE COMPLETED MSE screening note: Focused history and physical exam performed. Due to findings the following was ordered: ED Disposition for MSE Condition: Stable
[2018-09-03 14:34] LABS: Hematocrit 37.5 % (35.5-45.6); Hemoglobin 11.8 gm/dl (11.8-15.2); Mean Corpuscular HGB Conc 32 % (32-34); Mean Corpuscular Volume 79 fl (84-94); Platelet Count 169 K/mm3 (140-440); Red Blood Count 4.73 M/mm3 (3.65-5.03); Red Cell Distribution Width 15.7 % (13.2-15.2)
[2018-09-03 14:44] LABS: Alanine Aminotransferase 13 units/L (7-56); Albumin 3.6 g/dL (3.9-5); BUN/Creatinine Ratio 8; Blood Urea Nitrogen 9 mg/dL (9-20); Calcium 8.5 mg/dL (8.4-10.2); Hemolysis Index 11
[2018-09-03 14:45] LABS: INR 3.38 (0.87-1.13)
[2018-09-03 21:04] VITALS: BP 122/79
== END 2018-09-03 17:35 | disposition left against medical advice (07) ==
LOC: ED 13:30
DX: I10 Essential (primary) hypertension (principal); Z76.0 Encounter for issue of repeat prescription; Z53.21 Procedure and treatment not carried out due to patient leaving prior to being seen by health care provider
CPT/HCPCS: 36415; 80053; 84484; 85027; 85610; 93005; 93010